=== PATIENT | male | born 1990 | race African-American/Black ===

== ENCOUNTER 2021-06-28 15:40 | Emergency (ER) | payer OTHER ==
[~2021-06-28] VITALS: Ht 162.6 cm; Wt 88.5 kg
== END 2021-06-28 16:22 | disposition home or self-care (01) ==
LOC: ER 15:55
DX: Z04.1 Encounter for examination and observation following transport accident (principal); V43.52XA Car driver injured in collision with other type car in traffic accident, initial encounter; Y92.488 Other paved roadways as the place of occurrence of the external cause
CPT/HCPCS: 99282